=== PATIENT | female | born 1980 | race Two or more races ===

== ENCOUNTER 2022-09-28 00:32 | Emergency (ER) | payer OTHER ==
[~2022-09-28] VITALS: Ht 157.5 cm; Wt 167.0 kg
[2022-09-28 01:37] LABS: Basophils # (auto) 0.1 10 ^3/uL (0-0.2); Eosinophils # (auto) 0.1 10 ^3/uL (0-0.8); Eosinophils % (auto) 1.1 % (0.0-7.0); Hematocrit 45.4 % (36.0-46.0); Hemoglobin 14.8 g/dL (12.2-16.2); Lymphocytes # (auto) 3.8 10 ^3/uL (0.4-5.4); Lymphocytes % (auto) 34.9 % (10.0-50.0); Mean Corpuscular Hemoglobin 28.5 pg (28.0-32.0); Mean Corpuscular Hgb Conc. 32.6 g/dL (32.0-36.0); Mean Corpuscular Volume 87.4 fL (80.0-100.0); Monocytes # (auto) 0.5 10 ^3/uL (0-1.3); Monocytes % (auto) 4.7 % (0.0-12.0); Neutrophils # (auto) 6.4 10 ^3/uL (1.6-8.6); Neutrophils % (auto) 58.3 % (37.0-80.0); Nucleated Red Blood Cells % 0.1 %; Red Blood Cells 5.19 10^6/uL (4.0-5.20); Red Cell Distribution Width 17.6 % (11.8-14.3); White Blood Cell 10.9 10^3/uL (4.4-10.8)
[2022-09-28 01:51] LABS: INR 1.19 (0.9-1.15)
[2022-09-28 02:30] LABS: Albumin 3.2 g/dL (3.4-5.0); BUN/Creatinine Ratio 14.8; Bilirubin, Total 0.4 mg/dL (0.2-1.0); Calcium 8.7 mg/dL (8.5-10.1); Potassium 3.8 mmol/L (3.5-5.1); Total Protein 8.1 g/dL (6.4-8.2)
[2022-09-28 02:31] LABS: Magnesium 2.1 mg/dL (1.6-2.6)
[2022-09-28 03:06] LABS: Urine Bacteria MANY /hpf (None Seen); Urine Blood 1+ /uL (Negative); Urine Mucus FEW (None Seen); Urine Specific Gravity 1.021 (1.001-1.035); Urine WBC 50 /hpf (0 - 5)
[2022-09-28] MEDS ORDERED: cefTRIAXone 1GM/50ML D5W 50 ML IV ONE (09:45)
[2022-09-28] MEDS ORDERED: AZITHROMYCIN 500MG/ 250ML 250 ML IV ONE (09:45)
[2022-09-28] MEDS ORDERED: GLIM1TAB PO (11:41)
[2022-09-28] MEDS ORDERED: CEFD300C2 PO (11:41)
[2022-09-28] MEDS ORDERED: METF-371 PO (11:41)
[2022-09-28 14:20] VITALS: BP 132/95
== END 2022-09-28 11:41 | disposition home or self-care (01) ==
LOC: ER 00:43
DX: J18.9 Pneumonia, unspecified organism (principal); R07.89 Other chest pain; N39.0 Urinary tract infection, site not specified; E11.9 Type 2 diabetes mellitus without complications; I10 Essential (primary) hypertension; R74.8 Abnormal levels of other serum enzymes; R42 Dizziness and giddiness; E66.01 Morbid (severe) obesity due to excess calories; Z68.44 Body mass index [BMI] 60.0-69.9, adult; Z20.822 Contact with and (suspected) exposure to COVID-19
CPT/HCPCS: 36415; 70450; 71045; 80053; 81001; 83036; 83605; 83735; 83880; 84443; 84484; 85025; 85379; 85610; 85730; 87040; 87426; 87804; 93005; 96365; 96367; 99285; J0456; J0696

== ENCOUNTER 2022-11-24 12:25 | Emergency (ER) | payer OTHER ==
[~2022-11-24] VITALS: Ht 157.5 cm; Wt 159.5 kg
[2022-11-24 12:25] VITALS: BP 152/101
[~2022-11-24 12:25] MED LIST: CEFD300C2 PO; GLIM1TAB PO; METF-371 PO
[2022-11-24] MEDS ORDERED: SUMAtriptan SUCCINATE 6 MG/0.5 ML VL SC ONE (13:30)
[2022-11-24] MEDS ORDERED: ONDANSETRON ODT 4 MG TAB PO ONE (13:30)
[2022-11-24] MEDS ORDERED: SUMA50TA2 PO (14:04)
[2022-11-24] MEDS ORDERED: ONDA-144 PO (14:47)
== END 2022-11-24 15:33 | disposition home or self-care (01) ==
LOC: ER 12:25
DX: G43.909 Migraine, unspecified, not intractable, without status migrainosus (principal); Z79.899 Other long term (current) drug therapy; Z98.890 Other specified postprocedural states
CPT/HCPCS: 70450; 96372; 99284; J3030; Q0162

== ENCOUNTER 2023-09-15 21:41 | Inpatient (IN) | payer OTHER ==
[~2023-09-15] VITALS: Ht 160 cm; Wt 155.4 kg
[~2023-09-15 21:41] MED LIST changes: +ONDA-144 PO; +RIVAROXABAN 20 MG TAB PO SCH; +SUMA50TA2 PO
[2023-09-15 23:10] LABS: Basophils # (auto) 0.1 10 ^3/uL (0-0.2); Basophils % (auto) 0.3 % (0.0-2.0); Eosinophils # (auto) 0 10 ^3/uL (0-0.8); Hematocrit 41.8 % (36.0-46.0); Lymphocytes # (auto) 1.3 10 ^3/uL (0.4-5.4); Lymphocytes % (auto) 7.4 % (10.0-50.0); Mean Corpuscular Hemoglobin 30.2 pg (28.0-32.0); Mean Corpuscular Hgb Conc. 33.5 g/dL (32.0-36.0); Mean Corpuscular Volume 90.2 fL (80.0-100.0); Monocytes # (auto) 1.5 10 ^3/uL (0-1.3); Monocytes % (auto) 8.6 % (0.0-12.0); Neutrophils # (auto) 14.7 10 ^3/uL (1.6-8.6); Neutrophils % (auto) 83.7 % (37.0-80.0); Nucleated Red Blood Cells % 0.1 %; Red Blood Cells 4.64 10^6/uL (4.0-5.20); Red Cell Distribution Width 14.2 % (11.8-14.3); White Blood Cell 17.6 10^3/uL (4.4-10.8)
[2023-09-15] MEDS ORDERED: ONDANSETRON ODT 4 MG TAB PO ONE (23:15)
[2023-09-15] MEDS ORDERED: KETOROLAC TROMETH 60MG/2ML VIAL IM ONE (23:15)
[2023-09-15 23:26] LABS: Alanine Aminotransferase 33 U/L (7-40); Alkaline Phosphatase 61 U/L (46-116); Calcium 9.3 mg/dL (8.7-10.4); Carbon Dioxide 21 mmol/L (20-30); Chloride 99 mmol/L (98-107); Glucose 154 mg/dL (74-106)
[2023-09-15 23:26] LABS: Urine Amorphous Crystal FEW /hpf (None Seen); Urine Bacteria FEW /hpf (None Seen); Urine Blood 3+ /uL (Negative); Urine Clarity CLOUDY (Clear); Urine Color Yellow (Yellow); Urine Hyaline Cast FEW /lpf (0 - 2); Urine Mucus FEW (None Seen); Urine Protein, UAD 2+ (Negative); Urine Specific Gravity 1.032 (1.001-1.035); Urine WBC 22 /hpf (0 - 5); Urine WBC Clumps PRESENT /hpf (None Seen)
[2023-09-15 23:27] LABS: Albumin 4.5 g/dL (3.2-4.8); Anion Gap 11 (5-15); Aspartate Aminotransferase 18 U/L (13-40); BUN/Creatinine Ratio 8.9 (10.0-20.0); Blood Urea Nitrogen 11 mg/dL (9-23); Lipase 42 U/L (12-53); Potassium 3.7 mmol/L (3.5-5.1); Sodium 131 mmol/L (136-145); Total Protein 8.6 g/dL (5.7-8.2)
[2023-09-15] MEDS ORDERED: cefTRIAXone 1GM/50ML D5W 50 ML IV ONE (23:45)
[2023-09-15] MEDS ORDERED: TAMSULOSIN HYDROCHLORIDE 0.4 MG CAP PO ONE (23:45)
[2023-09-15] MEDS ORDERED: SODIUM CHLORIDE 0.9% 1,000 ML IV ONE (23:45)
[2023-09-16] MEDS ORDERED: DEXTROSE (50%) 50ML SYRG IV PRN
[2023-09-16] MEDS ORDERED: KETOROLAC TROMETH 30 MG/ML 1ML VIAL IV ONE (01:45)
[2023-09-16] MEDS: ONDANSETRON HCL 4 MG/2 ML VIAL IV PRN ×2 (01:49→12:33)
[2023-09-16 06:14] LABS: Calcium 9.1 mg/dL (8.7-10.4); Chloride 99 mmol/L (98-107); Potassium 3.6 mmol/L (3.5-5.1); Sodium 132 mmol/L (136-145)
[2023-09-16 06:15] LABS: Anion Gap 10 (5-15); Carbon Dioxide 23 mmol/L (20-30)
[2023-09-16 06:18] LABS: Basophils # (auto) 0 10 ^3/uL (0-0.2); Basophils % (auto) 0.3 % (0.0-2.0); Eosinophils # (auto) 0 10 ^3/uL (0-0.8); Hematocrit 40.9 % (36.0-46.0); Hemoglobin 13.4 g/dL (12.2-16.2); Lymphocytes # (auto) 1.8 10 ^3/uL (0.4-5.4); Lymphocytes % (auto) 11.9 % (10.0-50.0); Mean Corpuscular Hemoglobin 29.7 pg (28.0-32.0); Mean Corpuscular Hgb Conc. 32.8 g/dL (32.0-36.0); Mean Corpuscular Volume 90.7 fL (80.0-100.0); Monocytes # (auto) 0.7 10 ^3/uL (0-1.3); Monocytes % (auto) 4.9 % (0.0-12.0); Neutrophils # (auto) 12.5 10 ^3/uL (1.6-8.6); Neutrophils % (auto) 82.9 % (37.0-80.0); Red Blood Cells 4.51 10^6/uL (4.0-5.20); Red Cell Distribution Width 14.4 % (11.8-14.3); White Blood Cell 15.1 10^3/uL (4.4-10.8)
[2023-09-16 06:20] LABS: BUN/Creatinine Ratio 9.3 (10.0-20.0); Blood Urea Nitrogen 14 mg/dL (9-23); Glucose 138 mg/dL (74-106)
[2023-09-16] MEDS: HYDROcodone-ACET 5/325MG TAB PO PRN ×2 (06:32→18:09)
[2023-09-16] MEDS: InsuLIN REG 1unit/0.01ml Soln (100units/ml) SC SCH ×4 (07:35→22:28)
[2023-09-16] MEDS: ACCU-CHEK COMFORT CURVE STRIP VI SCH ×4 (07:36→22:21)
[2023-09-16] MEDS: ACETAMINOPHEN 325 MG TAB PO PRN (07:39)
[2023-09-16 07:42] VITALS: PULSE 118; RESP 18; O2SAT 96
[2023-09-16] MEDS: cefTRIAXone 1GM/50ML D5W 50 ML IV SCH (09:41)
[2023-09-16] MEDS ORDERED: PATIENTS OWN MEDICATION (XARELTO 20 MG) PO SCH (10:00)
[2023-09-16] MEDS: KETOROLAC TROMETH 30 MG/ML 1ML VIAL IV PRN ×2 (11:45→22:30)
[2023-09-16] MEDS: LOSARTAN POTASSIUM 50 MG TAB PO SCH (11:55)
[2023-09-16] MEDS ORDERED: RIVAROXABAN 20 MG TAB PO SCH (12:00)
[2023-09-16] MEDS: MORPHINE SULFATE INJ 2 MG/ml SYRG IV PRN (12:24)
[2023-09-16] MEDS ORDERED: TAMSULOSIN HYDROCHLORIDE 0.4 MG CAP PO ONE (13:30)
[2023-09-16] MEDS ORDERED: MANNITOL FTV 25% 12.5 GM/50 ML 50 ML IV ONE (15:15)
[2023-09-16] MEDS ORDERED: SODIUM CHLORIDE 0.9% 4,650 ML IV ONE ×2 (15:15→16:15)
[2023-09-16] MEDS: TAMSULOSIN HYDROCHLORIDE 0.4 MG CAP PO SCH ×2 (18:00→22:20)
[2023-09-16 20:00] VITALS: PULSE 103; RESP 15; O2SAT 92
[2023-09-16 21:42] VITALS: PULSE 103; RESP 16; O2SAT 95
[2023-09-16] MEDS ORDERED: RIV20T PO (21:46)
[2023-09-16] MEDS ORDERED: SEMA7TAB2 PO (21:46)
[2023-09-16] MEDS ORDERED: LOSA50TA46 PO (21:46)
[2023-09-16] MEDS ORDERED: ATOR40TA52 PO (21:46)
[2023-09-16] MEDS: ATORVASTATIN 20 MG TAB PO SCH (22:19)
[2023-09-16 23:21] VITALS: BP 92/52; PULSE 103; RESP 16; TEMP 97.6; O2SAT 95
[2023-09-17] VITALS (8 sets, daily range): BP systolic 98–134; BP diastolic 61–81; PULSE 87–102; RESP 16–23; TEMP 97.2–98.7; O2SAT 93–95
[2023-09-17] MEDS: ACETAMINOPHEN 325 MG TAB PO PRN (03:56)
[2023-09-17] MEDS ORDERED: SODIUM CHLORIDE 0.9% 500 ML IV ONE (04:15)
[2023-09-17] MEDS: HYDROcodone-ACET 5/325MG TAB PO PRN (04:42)
[2023-09-17] MEDS: InsuLIN REG 1unit/0.01ml Soln (100units/ml) SC SCH ×4 (07:00→22:00)
[2023-09-17] MEDS: ACCU-CHEK COMFORT CURVE STRIP VI SCH ×4 (07:29→22:00)
[2023-09-17] MEDS: cefTRIAXone 1GM/50ML D5W 50 ML IV SCH (08:01)
[2023-09-17] MEDS: MORPHINE SULFATE INJ 2 MG/ml SYRG IV PRN ×2 (09:45→15:11)
[2023-09-17] MEDS: LOSARTAN POTASSIUM 50 MG TAB PO SCH (09:45)
[2023-09-17] MEDS: ONDANSETRON HCL 4 MG/2 ML VIAL IV PRN (20:27)
[2023-09-17] MEDS: TAMSULOSIN HYDROCHLORIDE 0.4 MG CAP PO SCH (20:27)
[2023-09-17] MEDS: KETOROLAC TROMETH 30 MG/ML 1ML VIAL IV PRN (20:27)
[2023-09-17] MEDS: ATORVASTATIN 20 MG TAB PO SCH (20:28)
[2023-09-18] VITALS (8 sets, daily range): BP systolic 124–147; BP diastolic 74–97; PULSE 74–90; RESP 16–22; TEMP 97.5–98.4; O2SAT 93–100
[2023-09-18] MEDS: ONDANSETRON HCL 4 MG/2 ML VIAL IV PRN ×4 (00:47→21:15)
[2023-09-18] MEDS: MORPHINE SULFATE INJ 2 MG/ml SYRG IV PRN (00:50)
[2023-09-18] MEDS: KETOROLAC TROMETH 30 MG/ML 1ML VIAL IV PRN ×3 (06:17→21:15)
[2023-09-18] MEDS: ACCU-CHEK COMFORT CURVE STRIP VI SCH ×4 (06:18→22:00)
[2023-09-18] MEDS: InsuLIN REG 1unit/0.01ml Soln (100units/ml) SC SCH ×4 (06:28→22:00)
[2023-09-18] MEDS: cefTRIAXone 1GM/50ML D5W 50 ML IV SCH (09:24)
[2023-09-18] MEDS: LOSARTAN POTASSIUM 50 MG TAB PO SCH (09:25)
[2023-09-18] MEDS: HYDROcodone-ACET 5/325MG TAB PO PRN ×3 (09:36→22:49)
[2023-09-18] MEDS: SUMAtriptan SUCCINATE 25 MG TAB PO PRN ×2 (15:15→22:37)
[2023-09-18] MEDS: TAMSULOSIN HYDROCHLORIDE 0.4 MG CAP PO SCH (21:15)
[2023-09-18] MEDS: MELATONIN 5 MG TAB PO SCH (22:14)
[2023-09-18] MEDS: ATORVASTATIN 20 MG TAB PO SCH (22:14)
[2023-09-19] MEDS: HYDROcodone-ACET 5/325MG TAB PO PRN ×3 (01:39→21:39)
[2023-09-19 05:00] VITALS: BP 127/85; PULSE 87; RESP 18; TEMP 98.1; O2SAT 96
[2023-09-19] MEDS: InsuLIN REG 1unit/0.01ml Soln (100units/ml) SC SCH ×4 (06:21→21:43)
[2023-09-19] MEDS: ACCU-CHEK COMFORT CURVE STRIP VI SCH ×4 (06:21→21:40)
[2023-09-19 08:15] VITALS: BP 122/84; PULSE 91; RESP 16; TEMP 97.2
[2023-09-19] MEDS: cefTRIAXone 1GM/50ML D5W 50 ML IV SCH (08:32)
[2023-09-19] MEDS: ONDANSETRON HCL 4 MG/2 ML VIAL IV PRN (08:32)
[2023-09-19 09:00] VITALS: BP 122/84; PULSE 91; RESP 16; TEMP 97.2; O2SAT 96
[2023-09-19] MEDS: LOSARTAN POTASSIUM 50 MG TAB PO SCH (10:15)
[2023-09-19] MEDS: SUMAtriptan SUCCINATE 25 MG TAB PO PRN (13:12)
[2023-09-19] MEDS ORDERED: SUMAtriptan SUCCINATE 6 MG/0.5 ML VL SC PRN (14:30)
[2023-09-19 17:00] VITALS: BP 117/86; PULSE 78; RESP 16; TEMP 97.8; O2SAT 97
[2023-09-19 20:00] VITALS: PULSE 90
[2023-09-19] MEDS: TAMSULOSIN HYDROCHLORIDE 0.4 MG CAP PO SCH (20:01)
[2023-09-19] MEDS: IMITREX PO PRN (20:02)
[2023-09-19] MEDS: ATORVASTATIN 20 MG TAB PO SCH (21:39)
[2023-09-19] MEDS: DOCUSATE SOD 100 MG CAP PO PRN (21:39)
[2023-09-19] MEDS: MELATONIN 5 MG TAB PO SCH (21:39)
[2023-09-19 22:00] VITALS: BP 128/85; PULSE 77; RESP 20; TEMP 98.1; O2SAT 93
[2023-09-20] MEDS: HYDROcodone-ACET 5/325MG TAB PO PRN ×3 (01:41→20:05)
[2023-09-20 05:00] VITALS: BP 109/77; PULSE 80; RESP 22; TEMP 98.8; O2SAT 96
[2023-09-20] MEDS: ACCU-CHEK COMFORT CURVE STRIP VI SCH ×4 (06:16→21:29)
[2023-09-20] MEDS: InsuLIN REG 1unit/0.01ml Soln (100units/ml) SC SCH ×4 (06:16→21:32)
[2023-09-20 08:15] VITALS: BP 118/77; PULSE 87; RESP 16; TEMP 98.7
[2023-09-20] MEDS: LOSARTAN POTASSIUM 50 MG TAB PO SCH (08:57)
[2023-09-20] MEDS: cefTRIAXone 1GM/50ML D5W 50 ML IV SCH (08:57)
[2023-09-20 08:58] VITALS: BP 118/77; PULSE 87; RESP 16; TEMP 98.7; O2SAT 93
[2023-09-20] MEDS: IMITREX PO PRN (09:05)
[2023-09-20] MEDS: DOCUSATE SOD 100 MG CAP PO PRN ×2 (09:05→21:29)
[2023-09-20 14:47] VITALS: BP 129/74; PULSE 79; RESP 16; TEMP 97.9; O2SAT 96
[2023-09-20 17:17] VITALS: BP 116/73; PULSE 85; RESP 17; TEMP 97.9; O2SAT 97
[2023-09-20] MEDS: TAMSULOSIN HYDROCHLORIDE 0.4 MG CAP PO SCH (20:05)
[2023-09-20] MEDS: MELATONIN 5 MG TAB PO SCH (21:29)
[2023-09-20] MEDS: ATORVASTATIN 20 MG TAB PO SCH (21:29)
[2023-09-20] MEDS: KETOROLAC TROMETH 30 MG/ML 1ML VIAL IV PRN (21:40)
[2023-09-20 22:00] VITALS: BP 128/89; PULSE 83; RESP 18; TEMP 98.1; O2SAT 97
[2023-09-21 05:00] VITALS: BP 129/88; PULSE 80; RESP 22; TEMP 97.8; O2SAT 96
[2023-09-21] MEDS: InsuLIN REG 1unit/0.01ml Soln (100units/ml) SC SCH ×2 (06:09→11:30)
[2023-09-21] MEDS: ACCU-CHEK COMFORT CURVE STRIP VI SCH ×2 (06:09→12:02)
[2023-09-21 06:29] LABS: Basophils # (auto) 0 10 ^3/uL (0-0.2); Basophils % (auto) 0.5 % (0.0-2.0); Eosinophils # (auto) 0.2 10 ^3/uL (0-0.8); Eosinophils % (auto) 2.6 % (0.0-7.0); Hematocrit 36.1 % (36.0-46.0); Hemoglobin 11.9 g/dL (12.2-16.2); Lymphocytes % (auto) 25.4 % (10.0-50.0); Mean Corpuscular Hemoglobin 29.6 pg (28.0-32.0); Mean Corpuscular Volume 89.9 fL (80.0-100.0); Monocytes # (auto) 1.3 10 ^3/uL (0-1.3); Monocytes % (auto) 16.6 % (0.0-12.0); Neutrophils # (auto) 4.2 10 ^3/uL (1.6-8.6); Neutrophils % (auto) 54.9 % (37.0-80.0); Red Blood Cells 4.01 10^6/uL (4.0-5.20); Red Cell Distribution Width 13.8 % (11.8-14.3); White Blood Cell 7.7 10^3/uL (4.4-10.8)
[2023-09-21 06:45] LABS: Anion Gap 9 (5-15); Carbon Dioxide 23 mmol/L (20-30); Chloride 105 mmol/L (98-107); Potassium 3.8 mmol/L (3.5-5.1); Sodium 137 mmol/L (136-145)
[2023-09-21 06:46] LABS: Calcium 8.8 mg/dL (8.7-10.4)
[2023-09-21 06:51] LABS: BUN/Creatinine Ratio 10.5 (10.0-20.0); Blood Urea Nitrogen 12 mg/dL (9-23); Glucose 96 mg/dL (74-106)
[2023-09-21 06:59] LABS: INR 1.04 (0.9-1.15); Partial Thromboplastin Time 29.6 SEC (24.5-34.5); Prothrombin Time 10.9 sec (9.3-11.8)
[2023-09-21] MEDS ORDERED: ceFAZolin 2 GM/D5W100ml 100 ML IV ONE (07:12)
[2023-09-21] MEDS ORDERED: IOHEXOL 300 MG/ML 100ML BOTTLE IJ ONE (07:13)
[2023-09-21] MEDS: cefTRIAXone 1GM/50ML D5W 50 ML IV SCH (08:54)
[2023-09-21] MEDS: LOSARTAN POTASSIUM 50 MG TAB PO SCH (08:55)
[2023-09-21 10:12] VITALS: BP 138/90; PULSE 82; RESP 16; TEMP 98.2; O2SAT 100
[2023-09-21] MEDS ORDERED: TAMS-35 PO (11:19)
[2023-09-21] MEDS ORDERED: CIPR-173 PO (11:20)
[2023-09-21] MEDS ORDERED: TRAM50TA2 PO ×2 (11:20→11:25)
[2023-09-21] MEDS ORDERED: HYDR-4902 PO (11:27)
[2023-09-21] MEDS ORDERED: ACE650RS PO (11:29)
[2023-09-21 13:09] VITALS: BP 138/90; TEMP 36.8
[2023-09-21 14:23] VITALS: BP 139/90; PULSE 78; RESP 16; TEMP 98.7; O2SAT 97
== END 2023-09-21 18:00 | disposition home or self-care (01) | DRG 720 ==
LOC: ER 21:41 → OVERFLOW 23:56 → EAST 09-16 20:30
PROVIDERS: ADMIT Nurse Practitioner; ATTEND Family Medicine
DX: A41.9 Sepsis, unspecified organism (principal); N17.9 Acute kidney failure, unspecified; Z68.44 Body mass index [BMI] 60.0-69.9, adult; N13.6 Pyonephrosis; E11.9 Type 2 diabetes mellitus without complications; I10 Essential (primary) hypertension; E86.0 Dehydration; R79.89 Other specified abnormal findings of blood chemistry; E66.01 Morbid (severe) obesity due to excess calories; E78.5 Hyperlipidemia, unspecified; Z86.711 Personal history of pulmonary embolism
CPT/HCPCS: 36415; 71045; 74018; 74176; 76775; 80048; 80053; 81001; 82962; 83605; 83690; 84702; 85025; 85610; 85730; 86850; 86900; 86901; 87040; 87086; 93005; G0378; J0696; J1815; J1885; J2405

== ENCOUNTER 2023-12-02 19:01 | Emergency (ER) | payer SELFPAY ==
[~2023-12-02] VITALS: Ht 160 cm; Wt 154.0 kg
[~2023-12-02 19:01] MED LIST changes: +ACE650RS PO; +ATOR40TA52 PO; -CEFD300C2 PO; +CIPR-173 PO; -GLIM1TAB PO; +LOSA50TA46 PO; -ONDA-144 PO; +RIV20T PO; -RIVAROXABAN 20 MG TAB PO SCH; +SEMA7TAB2 PO; +TAMS-35 PO
[2023-12-02] MEDS ORDERED: ONDANSETRON ODT 4 MG TAB PO ONE (19:45)
[2023-12-02] MEDS ORDERED: DexAMETHasone SOD PHOS 10MG/1ML VIAL INJ IM ONE (20:00)
[2023-12-02 21:14] LABS: COVID19 ANTIGEN SOFIA FIA NEGATIVE (NEGATIVE); Rapid Influenza A Negative (Negative); Rapid Influenza B Negative (Negative)
[2023-12-02 21:34] VITALS: BP 126/87
[2023-12-02 22:35] LABS: Rapid Strep A Screen-Throat Negative
[2023-12-02 22:39] LABS: Urine Bacteria NONE SEEN /hpf (None Seen); Urine Blood 1+ /uL (Negative); Urine Clarity Clear (Clear); Urine Color Yellow (Yellow); Urine Mucus FEW (None Seen); Urine Protein, UAD TRACE (Negative); Urine Specific Gravity 1.023 (1.001-1.035); Urine WBC 2 /hpf (0 - 5)
[2023-12-02] MEDS ORDERED: ACET500T58 PO (23:00)
[2023-12-02] MEDS ORDERED: IBUP-1455 PO (23:00)
[2023-12-02 23:28] VITALS: PULSE 100; RESP 18; TEMP 98.2; O2SAT 98
== END 2023-12-02 23:28 | disposition home or self-care (01) ==
LOC: ER 19:01
DX: J02.8 Acute pharyngitis due to other specified organisms (principal); Z20.822 Contact with and (suspected) exposure to COVID-19; Z86.711 Personal history of pulmonary embolism; Z98.890 Other specified postprocedural states
CPT/HCPCS: 36415; 70360; 81001; 87070; 87426; 87804; 87880; 96372; 99284; J1100

== ENCOUNTER 2023-12-04 18:54 | Emergency (ER) | payer SELFPAY ==
[~2023-12-04] VITALS: Ht 160 cm; Wt 150.0 kg
[~2023-12-04 18:54] MED LIST changes: +ACET500T58 PO; +IBUP-1455 PO
[2023-12-04 19:10] VITALS: BP 140/78; PULSE 103; RESP 22; TEMP 98.2; O2SAT 96
[2023-12-04 20:56] LABS: Basophils # (auto) 0.1 10 ^3/uL (0-0.2); Basophils % (auto) 0.4 % (0.0-2.0); Eosinophils # (auto) 0.1 10 ^3/uL (0-0.8); Eosinophils % (auto) 0.3 % (0.0-7.0); Hematocrit 41.8 % (36.0-46.0); Hemoglobin 13.2 g/dL (12.2-16.2); Lymphocytes # (auto) 4.5 10 ^3/uL (0.4-5.4); Lymphocytes % (auto) 24.4 % (10.0-50.0); Mean Corpuscular Hemoglobin 28.2 pg (28.0-32.0); Mean Corpuscular Hgb Conc. 31.7 g/dL (32.0-36.0); Monocytes # (auto) 1.6 10 ^3/uL (0-1.3); Neutrophils # (auto) 12.1 10 ^3/uL (1.6-8.6); Neutrophils % (auto) 65.9 % (37.0-80.0); Red Cell Distribution Width 14.2 % (11.8-14.3); White Blood Cell 18.4 10^3/uL (4.4-10.8)
[2023-12-04 21:21] LABS: Alanine Aminotransferase 14 U/L (7-40); Albumin 4.3 g/dL (3.2-4.8); Alkaline Phosphatase 63 U/L (46-116); Anion Gap 10 (5-15); Aspartate Aminotransferase 16 U/L (13-40); BUN/Creatinine Ratio 15.6 (10.0-20.0); Bilirubin, Total 0.3 mg/dL (0.2-1.0); Blood Urea Nitrogen 17 mg/dL (9-23); Calcium 9.7 mg/dL (8.5-10.1); Carbon Dioxide 23 mmol/L (20-30); Chloride 105 mmol/L (98-107); Glucose 109 mg/dL (74-106); Potassium 3.9 mmol/L (3.5-5.1); Sodium 138 mmol/L (136-145); Total Protein 8.3 g/dL (5.7-8.2)
[2023-12-04 21:29] LABS: Rapid Strep A Screen-Throat Positive
[2023-12-04] MEDS ORDERED: PENICILLIN G BENZ 1,200,000 UNITS/2 ML SYRG IM ONE (21:45)
[2023-12-04] MEDS ORDERED: LIDOCAINE VISCOUS 2% 15ML UD MT ONE (21:45)
[2023-12-04] MEDS ORDERED: DexAMETHasone SOD PHOS 10MG/1ML VIAL INJ IM ONE (21:45)
[2023-12-04] MEDS ORDERED: PRED20TA2 PO (21:57)
[2023-12-04] MEDS ORDERED: IBUP-1455 PO (21:57)
[2023-12-04] MEDS ORDERED: LIDO2SOL18 MT (21:57)
[2023-12-04] MEDS ORDERED: CLIN300C70 PO (21:57)
[2023-12-04] MEDS ORDERED: HYDR-4902 PO (22:01)
== END 2023-12-04 22:26 | disposition home or self-care (01) ==
LOC: ER 18:54
DX: J03.90 Acute tonsillitis, unspecified (principal); R59.1 Generalized enlarged lymph nodes; E11.9 Type 2 diabetes mellitus without complications; Z86.711 Personal history of pulmonary embolism; Z98.890 Other specified postprocedural states; Z79.899 Other long term (current) drug therapy
CPT/HCPCS: 36415; 80053; 82962; 85025; 86308; 87880; 96372; 99284; J0561; J1100

== ENCOUNTER 2024-11-22 20:46 | Inpatient (IN) | payer OTHER, SELFPAY ==
[~2024-11-22] VITALS: Ht 160 cm; Wt 150.0 kg
[~2024-11-22 20:46] MED LIST changes: +CLIN1CAP70 PO; +HYDR-4902 PO; -IBUP-1455 PO; +LIDO2SOL18 MT; +LOSA-534 PO; -LOSA50TA46 PO; +PRED20TA2 PO
--- NOTE | 2024-11-22 20:54 | ECG ---
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
[2024-11-22] MEDS: LORazepam 2MG/ML-1ML VIAL IV ONE (21:00)
[2024-11-22] MEDS: SODIUM CHLORIDE 0.9% 1,000 ML IV ONE (21:00)
--- NOTE | 2024-11-22 21:17 | ED.PDOC ---
HPI Comments HPI: Poor Historian. 44-year-old female presents to emergency department for evaluation of chest discomfort/palpitations Patient states that she felt palpitations starting today that caused her to feel SOB and some chest discomfort. Patient mentions a history of anxiety and feeling like this in the past, but states that this time it is stronger and more intense than previous episodes. Patient is a former tobacco smoker. Patient has positive family history of heart disease. Patient started Wellbutrin x 1 week ago for Depression and Anxiety. Patient is currently taking Xarelto. PMHx: Diabetes, Hypertension, Blood Clotting Disorder, Anxiety , depression PSHx: Initial Vital Signs: Temp: 97.4F HR: 118 RR: 19 BP: 145/94 SpO2: 98% REVIEW OF SYSTEMS: CONSTITUTIONAL: Denies acute: fever, diaphoresis, chills, generalized weakness. HEAD: Denies acute: headache, photophobia Eyes: Denies acute: Double vision, vision loss, eye pain, eye discharge. EARS: Denies acute: tinnitus, hearing loss, ear discharge, ear pain, THROAT: Denies acute: sore throat, swelling, difficulty swallowing , pain with swallowing, change in voice. NECK: Denies acute: neck pain, neck swelling, stiff neck. HEART: Denies acute : LUNGS: Denies acute: wheezing, cough, hemoptysis ABDOMEN: Denies acute: abdominal pain, Nausea, Vomiting, diarrhea, melena , hematemesis, hematochezia SKIN: Denies acute: rash, redness, lesions, itchiness. EXTREMITIES: Denies acute: calf pain, numbness, tingling, weakness, denies pain in extremity. Denies acute: Low back pain. Neuro: Denies acute: focal neurological deficit, motor or sensory focal neurological deficit, tremors, seizure like activity, confusion, dizziness, change in mental status, loss of bowel or bladder function, cauda equina like symptoms. : Denies acute: dysuria, hematuria, flank pain, increase in urinary frequency. PSYCH: Denies acute: hallucination, suicidal ideation, homicidal ideation. FEMALE: Denies acute: abnormal vaginal bleeding, foul odor, unusual discharge. PHYSICAL EXAM: General: Mild acute distress, awake and alert. Head: normocephalic, atraumatic. Neck: supple, trachea is midline, no swelling. Throat: Normal phonation. Eyes:, no erythema, no purulent discharge, no proptosis, no icterus. Heart: regular tachycardic, no significant murmur appreciated. Lungs: no apparent respiratory distress, Able to speak in full sentences. No wheezing, no rhonchi, no crackles. No stridors Clear to auscultation bilaterally. Abdomen: non tender to palpation, non distended, soft, no guarding, no rebound, + bowel sounds. Morbidly obese Neuro: Awake, Alert, oriented to name, self, situation, follows commands GCS=15. Speech is normal. Skin: no petechia, no purpura, no cyanosis, non-pale, not jaundice. Lower extremities: --1/4 - Pitting edema no deformity, no focal swelling, no calf TTP. Makes eye contact. moves all four extremities. Face: no apparent facial droop. Ambulating in the ED independently. Chief Complaint: Chest Pain Time Seen by MD: 20:51 Primary Care Provider: MARQUEZ Reviewed Notes: Nurses Notes, Medications, Allergies Allergies: Coded Allergies: NO KNOWN ALLERGIES (Unverified , 09/28/22) Home Meds Active Scripts Hydrocodone-Acetaminophen (Hydrocodone Bitartrate/AC 5-325 mg) 1 Tab Tab, 1 TAB PO Q6HPRN PRN, #4 TAB As needed for pain Prov:VAMSI DURÁN Q COREMAKER PIPE 12/04/23 Lidocaine Hcl (Lidocaine Viscous) 2 % Catie, 5 ML MT Q6HPRN PRN, #100 ML As needed for sore throat Prov:VAMSI DURÁN Q COREMAKER PIPE 12/04/23 Prednisone (Prednisone) 20 Mg Tab, 1 TAB PO DAILY for 5 Days, #5 TAB Start tomorrow with food Prov:VAMSI DURÁN Q COREMAKER PIPE 12/04/23 Clindamycin Hcl (Clindamycin Hcl) 300 Mg Cap, 1 CAP PO QID for 10 Days, #40 CAP Prov:VAMSI DURÁN Q COREMAKER PIPE 12/04/23 Acetaminophen (Acetaminophen) 500 Mg Tab, 500 MG PO Q4HP PRN, #30 TAB Prov:HALEY SALDAÑA PAC 12/02/23 Acetaminophen (Tylenol) 650 Mg Rc, 650 MG PO TID PRN, #30 SUPP.RECT Prov:DANIELLA PADILLA MD 09/21/23 Ciprofloxacin Hcl (Cipro) 500 Mg Tab, 1 TAB PO BID, #20 TAB Prov:DANIELLA PADILLA MD 09/21/23 Tamsulosin Hcl (Flomax) 0.4 Mg Cap, 1 CAP PO DAILY, #30 CAP 11 Refills Prov:DANIELLA PADILLA MD 09/21/23 Sumatriptan Succinate (Imitrex) 50 Mg Tab, 100 MG PO BID, #20 TAB Prov:HALEY SALDAÑA PAC 11/24/22 Metformin Hydrochloride (Metformin Hcl) 850 Mg Tab, 1 TAB PO BID for 30 Days, #60 TAB 5 Refills Prov:OLLIE DE LA GARZA MD 09/28/22 Reported Medications Atorvastatin Calcium (ATORVASTATIN CALCIUM) 40 Mg Tab, 1 TAB PO DAILY 09/16/23 Losartan Potassium (Losartan Potassium) 50 Mg Tab, 1 TAB PO DAILY 09/16/23 Semaglutide (Rybelsus) 7 Mg Tab, 1 TAB PO DAILY 09/16/23 Rivaroxaban (Xarelto Tablet) 20 Mg Tb, 1 TAB PO DAILY 09/16/23 Information Source: Patient Mode of Arrival: Ambulatory Past Medical History PAST MEDICAL HISTORY: DM, PE Surgical History: 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 Was a procedure done?: No X-Ray, Labs, Meds, VS Vital Signs Date Time Temp Pulse Resp B/P (MAP) Pulse Ox O2 Delivery O2 Flow Rate FiO2 11/22/24 20:52 119 11/22/24 20:50 98.6 118 19 145/94 (111) 98 Lab Test 11/22/24 22:01 11/22/24 21:00 Range/Units Lactic Acid Level 1.7 0.4-2.0 mmol/L Troponin I High Sensitivity < 3 L < 3 L </=34 ng/L White Blood Count 9.8 4.4-10.8 10^3/uL Red Blood Count 4.46 4.0-5.20 10^6/uL Hemoglobin 11.4 L 12.2-16.2 g/dL Hematocrit 35.6 L 36.0-46.0 % Mean Corpuscular Volume 79.9 L 80.0-100.0 fL Mean Corpuscular Hemoglobin 25.5 L 28.0-32.0 pg Mean Corpuscular Hemoglobin Concent 32.0 32.0-36.0 g/dL Red Cell Distribution Width 16.3 H 11.8-14.3 % Platelet Count 347 140-450 10^3/uL Mean Platelet Volume 8.0 6.9-10.8 fL Neutrophils (%) (Auto) 60.3 37.0-80.0 % Lymphocytes (%) (Auto) 29.8 10.0-50.0 % Monocytes (%) (Auto) 8.3 0.0-12.0 % Eosinophils (%) (Auto) 0.9 0.0-7.0 % Basophils (%) (Auto) 0.7 0.0-2.0 % Neutrophils # (Auto) 5.9 1.6-8.6 10 ^3/uL Lymphocytes # (Auto) 2.9 0.4-5.4 10 ^3/uL Monocytes # (Auto) 0.8 0-1.3 10 ^3/uL Eosinophils # (Auto) 0.1 0-0.8 10 ^3/uL Basophils # (Auto) 0.1 0-0.2 10 ^3/uL Nucleated Red Blood Cells 0.0 % Prothrombin Time 10.2 9.3-11.8 sec Prothrombin Time INR 0.96 0.9-1.15 Activated Partial Thromboplast Time 26.7 24.5-34.5 SEC D-Dimer, Quantitative 0.23 0.0-0.49 mg/L FEU Sodium Level 137 136-145 mmol/L Potassium Level 4.0 3.5-5.1 mmol/L Chloride Level 107 98-107 mmol/L Carbon Dioxide Level 22 20-31 mmol/L Anion Gap 8 5-15 Blood Urea Nitrogen 19 9-23 mg/dL Creatinine 0.93 0.550-1.02 mg/dL Glomerular Filtration Rate Calc 77 >90 mL/min BUN/Creatinine Ratio 20.4 H 10.0-20.0 Serum Glucose 172 H 74-106 mg/dL Calcium Level 9.5 8.7-10.4 mg/dL Magnesium Level 1.7 1.6-2.6 mg/dL Total Bilirubin 0.2 0.2-1.0 mg/dL Aspartate Amino Transferase (AST) 21 13-40 U/L Alanine Aminotransferase (ALT) 31 7-40 U/L Alkaline Phosphatase 63 46-116 U/L B-Type Natriuretic Peptide 37.85 0-100 pg/mL Total Protein 7.1 5.7-8.2 g/dL Albumin 3.9 3.2-4.8 g/dL Thyroid Stimulating Hormone (TSH) 1.55 0.55-4.78 uIU/mL [place] [address] Ph: [phone] DIAGNOSTIC IMAGING Diagnostic Imaging Report : [id number] Signed PATIENT: ARTHUR SMYTH ACCT: [id number] UNIT: [id number] : 1980 LOC: ER ROOM / BED: / AGE / SEX: 44 / F ADM STATUS: REG ER SERVICE 49 ORDERING PHYSICIAN: PEDRO LUIS CAMARILLO MD PROCEDURE(s): CXRP - CHEST PORTABLE REASON: CP ORDER NUMBER(s): [id number], ACCESSION NUMBER(s): [id number] EXAMINATION: AP portable chest radiograph CLINICAL HISTORY: CP COMPARISON: XY CHEST XRAY 1 VIEW on DOS: 09/21/23 FINDINGS: Mild central interstitial prominence. No lobar consolidation identified. No definite pleural effusion or pneumothorax. The cardiomediastinal silhouette appears within normal limits given technique. IMPRESSION: Mild central interstitial prominence is relatively nonspecific but can be seen with edema, reactive airway changes as well as atypical / viral infection. Plea se correlate clinically. ATED BY: JAMAAL CHEN MD DICTATED DATE/TIME: 11/22/242123 SIGNED BY: JAMAAL CHEN MD SIGNED DATE/TIME: 11/22/242123 CC: Reevaluation 1ST: Unchanged Patient Education/Counseling: Diagnosis, Treatment Family Education/Counseling: Diagnosis, Treatment Departure 1 Departure Time of Disposition: 21:42 Impression: Primary Impression: Chest pain Additional Impression: Tachycardia Disposition: 09 ADMITTED INPATIENT Admit to: Tele Condition: Guarded Discharged With: Self Critical Care Note Critical Care Time?: No I personally scribed for BARRY COOPER DO ([email or web address]) on 11/22/24 at 21:17. Electronically submitted by Dax Alvarado ([email or web address]). I personally scribed for BARRY COOPER DO ([email or web address]) on 11/22/24 at 21:38. Electronically submitted by Dax Alvarado ([email or web address]). I personally scribed for BARRY COOPER DO ([email or web address]) on 11/23/24 at 01:51. Electronically submitted by Ronni Jimenez ([email or web address]). BARRY COOPER DO Nov 22, 2024 21:17
--- NOTE | 2024-11-22 21:27 | DVH ---
EXAMINATION: AP portable chest radiograph CLINICAL HISTORY: CP COMPARISON: XY CHEST XRAY 1 VIEW on DOS: 09/21/23 FINDINGS: Mild central interstitial prominence. No lobar consolidation identified. No definite pleural effusion or pneumothorax. The cardiomediastinal silhouette appears within normal limits given technique. IMPRESSION: Mild central interstitial prominence is relatively nonspecific but can be seen with edema, reactive a irway changes as well as atypical / viral infection. Please correlate clinically.
[2024-11-22 21:35] LABS: Basophils # (auto) 0.1 10 ^3/uL (0-0.2); Eosinophils # (auto) 0.1 10 ^3/uL (0-0.8); Hemoglobin 11.4 g/dL (12.2-16.2); Monocytes # (auto) 0.8 10 ^3/uL (0-1.3); Neutrophils # (auto) 5.9 10 ^3/uL (1.6-8.6); Platelet Count (auto) 347 10^3/uL (140-450); Red Cell Distribution Width 16.3 % (11.8-14.3)
[2024-11-22 21:38] LABS: Basophils % (auto) 0.7 % (0.0-2.0); Eosinophils % (auto) 0.9 % (0.0-7.0); Hematocrit 35.6 % (36.0-46.0); Lymphocytes # (auto) 2.9 10 ^3/uL (0.4-5.4); Lymphocytes % (auto) 29.8 % (10.0-50.0); Mean Corpuscular Hemoglobin 25.5 pg (28.0-32.0); Mean Corpuscular Volume 79.9 fL (80.0-100.0); Monocytes % (auto) 8.3 % (0.0-12.0); Neutrophils % (auto) 60.3 % (37.0-80.0); Red Blood Cells 4.46 10^6/uL (4.0-5.20); White Blood Cell 9.8 10^3/uL (4.4-10.8)
[2024-11-22 21:39] LABS: Alanine Aminotransferase 31 U/L (7-40); Albumin 3.9 g/dL (3.2-4.8); Alkaline Phosphatase 63 U/L (46-116); Anion Gap 8 (5-15); Aspartate Aminotransferase 21 U/L (13-40); BUN/Creatinine Ratio 20.4 (10.0-20.0); Blood Urea Nitrogen 19 mg/dL (9-23); Calcium 9.5 mg/dL (8.7-10.4); Carbon Dioxide 22 mmol/L (20-31); Chloride 107 mmol/L (98-107); Magnesium 1.7 mg/dL (1.6-2.6); Sodium 137 mmol/L (136-145); Total Protein 7.1 g/dL (5.7-8.2)
[2024-11-22 21:42] LABS: Bilirubin, Total 0.2 mg/dL (0.2-1.0); Glucose 172 mg/dL (74-106)
[2024-11-22 21:44] LABS: INR 0.96 (0.9-1.15); Partial Thromboplastin Time 26.7 SEC (24.5-34.5); Prothrombin Time 10.2 sec (9.3-11.8)
[2024-11-22] MEDS: ASPirin 325 MG TAB PO ONE (21:45)
[2024-11-22] MEDS: NITROGLYCERIN 0.4 MG SL TAB SL ONE (21:45)
[2024-11-23 01:35] LABS: Amphetamine Screen, Urine Neg (NEGATIVE); Barbiturate Scree,Urine Neg (NEGATIVE); Benzodiazephine Screen, Urine Neg (NEGATIVE); Urine Bacteria FEW /hpf (None Seen); Urine Blood 2+ /uL (Negative); Urine Clarity Clear (Clear); Urine Color Light-Yellow (Yellow); Urine Protein, UAD Negative (Negative); Urine Squamous Epithelial Cell FEW /hpf (<5); Urine Urobilinogen Normal (Negative); Urine WBC 3 /hpf (0 - 5); Urine pH 5.5 (5.0-9.0)
[2024-11-23 01:38] LABS: Cannabinoid Screen, Urine Neg (NEGATIVE); Cocaine Screen, Urine Neg (NEGATIVE); Opiate Scree,Urine Neg (NEGATIVE); Phencyclidine Screen, Urine Neg (NEGATIVE)
[2024-11-23] MEDS ORDERED: DEXTROSE (50%) 50ML SYRG IV PRN (01:45)
--- NOTE | 2024-11-23 02:36 | DVHHPRES ---
History of Present Illness Resident Creating Document: FELIX SALDIVARDONATO RESIDENT History of Present Illness Patient is a 44-year-old obese woman with a past medical history as described below came to the ED with a chief complaint of sudden onset shortness of breath in the afternoon. Patient was started that she was working on a computer suddenly around 2:00 a.m. in the afternoon she started to have shortness of breath like she could not catch her breath and had associated palpitations. Patient also reported chest pain 7/10 in intensity, substernal, pressure-like with intermittent sharp pain but no radiation, no association with taking deep breaths or moving. Patient reported to have flu-like symptoms cough with expectoration about 2 weeks ago and is currently having only dry cough. Patient reports that she suffers from anxiety and has had previous episodes of shortness of Breath which improved when she takes deep breaths but this time she has had continuous shortness of breath and palpitations. Patient also reports lightheadedness and mild headache. Patient denies recent immobilization, history of cancer, recent surgery, weight loss, fever. Past medical history: DVT in 2000 and PE about 10 years ago currently on Xarelto 20 mg q.p.m., hypertension, type 2 diabetes mellitus, anxiety, dyslipidemia Past surgical history: Social history: Patient was a follow up over but denies current smoking, alcohol, drug use Home medications: Losartan q.d. ( dose unknown ), metformin 850 mg b.i.d., Lipitor q.h.s. (dose unknown), Xarelto 20 mg q.p.m., bupropion Review of Systems Review of Systems Patient reports feeling substernal pressure-like chest pain 7/10 on intensity but does not look to be in acute distress. Reports she is feeling palpitations since the afternoon and dry cough Denies shortness of breath, nausea, vomiting, dysuria, Allergies: Coded Allergies: NO KNOWN ALLERGIES (Unverified , 09/28/22) Medications Current Medications Medications Dose Ordered Sig/Jd Route Start Time Stop Time Status Last Admin Dose Admin Atorvastatin Calcium 40 mg HS PO 11/23/24 22:00 Exam Vital Signs Vital Signs Date Time Temp Pulse Resp B/P (MAP) Pulse Ox O2 Delivery O2 Flow Rate FiO2 11/22/24 20:52 119 11/22/24 20:50 98.6 19 145/94 (111) 98 Exam Physical Examination Constitutional: Patient was alert and oriented to time, place and person, is morbidly obese with a BMI 58, does not appear to be in any acute distress Gen - no pallor, no icterus, no cyanosis, no clubbing, no LAD, trace pitting edema in the lower extremities bilaterally more on the left. Skin - Patients skin is warm and dry. HEENT - normocephalic, atraumatic, moist mucous membranes. Neck - full ROM, no LAD, no JVD Pulmonary - B/L vesicular breath sounds. no crackles , no wheezing cardiovascular - normal S1,S2 heard. no murmurs heard. GI - soft abdomen without tenderness to deep palpation . no hepatospleenomegaly. Bowel sounds normoactive Neurological - Bilateral upper extremity strength 5/5, bilateral lower extremity strength 5/5, no facial droop, normal speech, no tremor, no sensory deficiets. Labs/Xrays Labs Test 11/23/24 00:18 11/22/24 23:00 11/22/24 22:01 11/22/24 21:00 Range/Units Troponin I High Sensitivity 3 L </=34 ng/L Urine Color Light-yellow Yellow Urine Clarity Clear Clear Urine pH 5.5 5.0-9.0 Urine Specific [place] 1.020 1.001-1.035 Urine Protein Negative Negative Urine Ketones Trace Negative Urine Blood 2+ H Negative /uL Urine Nitrite Negative Negative Urine Bilirubin Negative Negative Urine Urobilinogen Normal Negative mg/dL Urine Leukocyte Esterase Negative Negative /uL Urine RBC 15 0 - 4 /hpf Urine WBC 3 0 - 5 /hpf Urine Squamous Epithelial Cells Few <5 /hpf Urine Bacteria Few H None Seen /hpf Urine Glucose Normal Normal mg/dL Urine Opiates Screen Neg NEGATIVE Urine Fentanyl Screen Neg NEGATIVE Urine Barbiturates Screen Neg NEGATIVE Urine Phencyclidine Screen Neg NEGATIVE Urine Amphetamines Screen Neg NEGATIVE Urine Benzodiazepines Screen Neg NEGATIVE Urine Cocaine Screen Neg NEGATIVE Urine Cannabinoids Screen Neg NEGATIVE Lactic Acid Level 1.7 0.4-2.0 mmol/L White Blood Count 9.8 4.4-10.8 10^3/uL Red Blood Count 4.46 4.0-5.20 10^6/uL Hemoglobin 11.4 L 12.2-16.2 g/dL Hematocrit 35.6 L 36.0-46.0 % Mean Corpuscular Volume 79.9 L 80.0-100.0 fL Mean Corpuscular Hemoglobin 25.5 L 28.0-32.0 pg Mean Corpuscular Hemoglobin Concent 32.0 32.0-36.0 g/dL Red Cell Distribution Width 16.3 H 11.8-14.3 % Platelet Count 347 140-450 10^3/uL Mean Platelet Volume 8.0 6.9-10.8 fL Neutrophils (%) (Auto) 60.3 37.0-80.0 % Lymphocytes (%) (Auto) 29.8 10.0-50.0 % Monocytes (%) (Auto) 8.3 0.0-12.0 % Eosinophils (%) (Auto) 0.9 0.0-7.0 % Basophils (%) (Auto) 0.7 0.0-2.0 % Neutrophils # (Auto) 5.9 1.6-8.6 10 ^3/uL Lymphocytes # (Auto) 2.9 0.4-5.4 10 ^3/uL Monocytes # (Auto) 0.8 0-1.3 10 ^3/uL Eosinophils # (Auto) 0.1 0-0.8 10 ^3/uL Basophils # (Auto) 0.1 0-0.2 10 ^3/uL Nucleated Red Blood Cells 0.0 % Prothrombin Time 10.2 9.3-11.8 sec Prothrombin Time INR 0.96 0.9-1.15 Activated Partial Thromboplast Time 26.7 24.5-34.5 SEC D-Dimer, Quantitative 0.23 0.0-0.49 mg/L FEU Sodium Level 137 136-145 mmol/L Potassium Level 4.0 3.5-5.1 mmol/L Chloride Level 107 98-107 mmol/L Carbon Dioxide Level 22 20-31 mmol/L Anion Gap 8 5-15 Blood Urea Nitrogen 19 9-23 mg/dL Creatinine 0.93 0.550-1.02 mg/dL Glomerular Filtration Rate Calc 77 >90 mL/min BUN/Creatinine Ratio 20.4 H 10.0-20.0 Serum Glucose 172 H 74-106 mg/dL Calcium Level 9.5 8.7-10.4 mg/dL Magnesium Level 1.7 1.6-2.6 mg/dL Total Bilirubin 0.2 0.2-1.0 mg/dL Aspartate Amino Transferase (AST) 21 13-40 U/L Alanine Aminotransferase (ALT) 31 7-40 U/L Alkaline Phosphatase 63 46-116 U/L B-Type Natriuretic Peptide 37.85 0-100 pg/mL Total Protein 7.1 5.7-8.2 g/dL Albumin 3.9 3.2-4.8 g/dL Thyroid Stimulating Hormone (TSH) 1.55 0.55-4.78 uIU/mL Assessment/Plan Assessment/Plan Acute chest pain, r/o ACS ? Unstable angina - 12 lead ECG showed sinus tachycardia, no ST segment changes or T-wave abnormalities - troponin levels trended under normal limits - multiple comorbidities hypertension, morbid obesity, type 2 diabetes mellitus, hypercoagulable state ( with the h/o DVT and PE) - given aspirin 325 mg and atorvastatin 40 mg - on aspirin 81 mg and atorvastatin 40 mg q.d. - telemetry - cardiology consulted PE less likely - previous h/o DVT and PE, currently on Xarelto 20mg qpm - d-dimer 0.23 - Wells score 3 ( <PE unlikely) - as the patient is currently on xarelto and d-dimer is negative, PE is less likely, therefore Lower extremity venous doppler and CT angio not done Suspected pneumonitis ?post viral ?atypical bacterial - chest x-ray shows mild central interstitial prominence with suspicion of airway changes well as atypical/viral infection - given 1 dose of ceftriaxone 1 g and azithromycin 500 mg IV - duo nebs p.r.n. for SOB Hypertensive heart disease ?acute on chronic heart failure with systolic vs diastolic dysfunction - trace bilateral pitting edema more on the left lower extremity - given 1 dose of Lasix 20 mg IV - echo pending - started on home medication losartan Generalized anxiety disorder - started on home med bupropion Type 2 diabetes mellitus with hyperglycemia - HbA1c pending - at home patient takes metformin 850 mg b.i.d. - started on mild insulin sliding scale Goals of care discussed with the patient for over 27 minutes. Full code Plan discussed with Dr. Narayanan Plan discussed with: Patient My Orders Orders - SHO SALDIVAR RESIDENT Procedure Category Date Status Time Admit ADMIT 11/22/24 Transmitted 22:50 Stat Ekg For Chest JAY 11/22/24 In Process Pain 22:50 Notify Md Of Changes JAY 11/22/24 In Process From Base 22:50 Senior Hr Business Partner For JAY 11/22/24 In Process 24 Hours 22:50 Emergency Dysrhythmia JAY 11/22/24 In Process Protocol 22:50 Covid19 Antigen [facility] LAB 11/22/24 Logged Rapid Influenza A&B LAB 11/22/24 Logged 22:50 Complete Blood Count LAB 11/23/24 Logged 04:00 Basic Metabolic Panel LAB 11/23/24 Logged 04:00 Code Status CODE 11/22/24 Transmitted 23:09 Consistent DIET 11/23/24 Transmitted Carb(Ccho)Diabetes Breakfast Atorvastatin (Lipitor) PHA 11/23/24 In Process 22:00 Date of Service: Nov 23, 2024 Billing Provider: POOL NARAYANAN MD Common Visit Codes: [id number] INP/OBS CARE (HIGH) SHO SALDIVAR RESIDENT Nov 23, 2024 02:36 POOL NARAYANAN MD Nov 23, 2024 17:54
[2024-11-23] MEDS: FUROSEMIDE 20 MG/2 ML VIAL IV ONE (02:45)
[2024-11-23 05:00] VITALS: BP 125/75; PULSE 89; RESP 18; TEMP 98.6; O2SAT 97
[2024-11-23 05:30] VITALS: PULSE 85; RESP 18; O2SAT 97
[2024-11-23] MEDS: cefTRIAXone 1GM/50ML D5W 50 ML IV ONE (05:49)
[2024-11-23] MEDS: ATORVASTATIN 20 MG TAB PO ONE (05:58)
[2024-11-23] MEDS: buPROPion HCL 100 MG TAB PO SCH (05:58)
[2024-11-23] MEDS: ACCU-CHEK COMFORT CURVE STRIP VI SCH (05:59)
[2024-11-23] MEDS: InsuLIN REG 1unit/0.01ml Soln (100units/ml) SC SCH (06:07)
[2024-11-23] MEDS: AZITHROMYCIN 500MG/ 250ML 250 ML IV ONE (06:29)
[2024-11-23 07:59] VITALS: PULSE 91
[2024-11-23 08:19] LABS: Chloride 107 mmol/L (98-107); Potassium 3.9 mmol/L (3.5-5.1); Sodium 137 mmol/L (136-145)
[2024-11-23 08:20] LABS: Anion Gap 8 (5-15); Carbon Dioxide 22 mmol/L (20-31)
[2024-11-23 08:21] LABS: Calcium 9.3 mg/dL (8.7-10.4)
[2024-11-23] MEDS ORDERED: BUPR150T8 PO (08:21)
[2024-11-23 08:25] LABS: Blood Urea Nitrogen 16 mg/dL (9-23)
[2024-11-23 08:26] LABS: BUN/Creatinine Ratio 20.8 (10.0-20.0); Triglycerides 69 mg/dL (< 150)
[2024-11-23 08:27] LABS: LDL Cholesterol 68 mg/dL (< 100)
[2024-11-23 08:28] LABS: Cholesterol 119 mg/dL (< 200); HDL Cholesterol 48 mg/dL (40-59)
[2024-11-23 08:29] LABS: Basophils # (auto) 0 10 ^3/uL (0-0.2); Eosinophils # (auto) 0.1 10 ^3/uL (0-0.8); Hemoglobin 10.9 g/dL (12.2-16.2); Lymphocytes # (auto) 1.6 10 ^3/uL (0.4-5.4); Neutrophils # (auto) 5.3 10 ^3/uL (1.6-8.6)
[2024-11-23 08:31] LABS: Basophils % (auto) 0.3 % (0.0-2.0); Eosinophils % (auto) 1.2 % (0.0-7.0); Hematocrit 33.7 % (36.0-46.0); Lymphocytes % (auto) 20.9 % (10.0-50.0); Mean Corpuscular Hemoglobin 25.8 pg (28.0-32.0); Mean Corpuscular Hgb Conc. 32.5 g/dL (32.0-36.0); Mean Corpuscular Volume 79.6 fL (80.0-100.0); Monocytes # (auto) 0.7 10 ^3/uL (0-1.3); Monocytes % (auto) 8.9 % (0.0-12.0); Neutrophils % (auto) 68.7 % (37.0-80.0); Platelet Count (auto) 318 10^3/uL (140-450); Red Blood Cells 4.24 10^6/uL (4.0-5.20); Red Cell Distribution Width 16.2 % (11.8-14.3); White Blood Cell 7.7 10^3/uL (4.4-10.8)
[2024-11-23 08:32] LABS: Glucose 145 mg/dL (74-106)
[2024-11-23 09:21] VITALS: BP 113/71; PULSE 87; RESP 16; TEMP 98.3; O2SAT 95
[2024-11-23] MEDS: LOSARTAN POTASSIUM 25 MG TAB PO SCH (09:31)
[2024-11-23] MEDS: ASPirin 81 mg TAB PO SCH (09:31)
--- NOTE | 2024-11-23 10:09 | ECG ---
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
--- NOTE | 2024-11-23 12:08 | DVHINCON2 ---
Date Seen: Nov 23, 2024 Referring Physician MD [place] resident Reason for Consultation Chest Pain, ?unstable angina History of Present Illness This is a 44-year-old female patient who presents to emergency room with chief complaint of chest pain, shortness of breath, and palpitations that began at 2:00 p.m. yesterday. 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 She describes the chest pain as worse on inhalation, pressure-like in nature, intermittent, and left inframammary without radiation. She also reports recent sickness with cough approximately three weeks ago. Initial twelve lead electrocardiogram reveals normal sinus rhythm without any significant ST segment changes. Initial serial troponin levels have been negative. Significant past medical history includes hypertension, hyperlipidemia, type 2 diabetes mellitus, DVT in 2000, PE approximately 15 years ago (on Xarelto), anxiety, and morbid obesity. Past Medical History Past medical history reviewed. No other significant than mentioned above. Past Surgical History Family History: Cardiovascular disease G8 FATHER Chronic obstructive pulmonary disease G8 MOTHER Family History Family history reviewed. Social History Denies the use of tobacco, alcohol or illicit drugs. Allergies: Coded Allergies: NO KNOWN ALLERGIES (Unverified , 09/28/22) Home Meds Active Scripts Hydrocodone-Acetaminophen (Hydrocodone Bitartrate/AC 5-325 mg) 1 Tab Tab, 1 TAB PO Q6HPRN PRN, #4 TAB As needed for pain Prov:VAMSI DURÁN Q LINE CREWMAN 12/04/23 Lidocaine Hcl (Lidocaine Viscous) 2 % Catie, 5 ML MT Q6HPRN PRN, #100 ML As needed for sore throat Prov:JEFFREY DURÁNA Q LINE CREWMAN 12/04/23 Prednisone (Prednisone) 20 Mg Tab, 1 TAB PO DAILY for 5 Days, #5 TAB Start tomorrow with food Prov:JEFFREY DURÁNA Q LINE CREWMAN 12/04/23 Clindamycin Hcl (Clindamycin Hcl) 300 Mg Cap, 1 CAP PO QID for 10 Days, #40 CAP Prov:LUIS ARMANDOTWINABDELRAHMANA Q LINE CREWMAN 12/04/23 Acetaminophen (Acetaminophen) 500 Mg Tab, 500 MG PO Q4HP PRN, #30 TAB Prov:HALEY SALDAÑA PAC 12/02/23 Acetaminophen (Tylenol) 650 Mg Rc, 650 MG PO TID PRN, #30 SUPP.RECT Prov:DANIELLA PADILLA MD 09/21/23 Ciprofloxacin Hcl (Cipro) 500 Mg Tab, 1 TAB PO BID, #20 TAB Prov:DANIELLA PADILLA MD 09/21/23 Tamsulosin Hcl (Flomax) 0.4 Mg Cap, 1 CAP PO DAILY, #30 CAP 11 Refills Prov:DANIELLA PADILLA MD 09/21/23 Sumatriptan Succinate (Imitrex) 50 Mg Tab, 100 MG PO BID, #20 TAB Prov:HALEY SALDAÑA PAC 11/24/22 Metformin Hydrochloride (Metformin Hcl) 850 Mg Tab, 1 TAB PO BID for 30 Days, #60 TAB 5 Refills Prov:OLLIE DE LA GARZA MD 09/28/22 Reported Medications Bupropion Hcl (Wellbutrin Sr) 150 Mg Tab, 150 MG PO, TAB 11/23/24 Atorvastatin Calcium (ATORVASTATIN CALCIUM) 40 Mg Tab, 1 TAB PO DAILY 09/16/23 Losartan Potassium (Losartan Potassium) 50 Mg Tab, 1 TAB PO DAILY 09/16/23 Semaglutide (Rybelsus) 7 Mg Tab, 1 TAB PO DAILY 09/16/23 Rivaroxaban (Xarelto Tablet) 20 Mg Tb, 1 TAB PO DAILY 09/16/23 Home Meds Home medications reviewed. Current Medications Current Medications Medications (Trade) Dose Ordered Sig/Jd Route PRN Reason Start Time Stop Time Status Last Admin Atorvastatin Calcium (Lipitor) 40 mg HS PO 11/23/24 22:00 Diagnostic Test (Pha) (Accu-Chek Comfort Curve T) 1 strip IQ4HR 11/23/24 04:00 11/23/24 07:48 Insulin Human Regular (InsuLIN R) IQ4HR SC 11/23/24 04:00 11/23/24 07:57 Dextrose 50 ml UD PRN IV Blood Sugar LESS THAN 60 11/23/24 01:45 Losartan Potassium (Cozaar Tablet) 25 mg DAILY PO 11/23/24 10:00 11/23/24 09:31 Bupropion HCl (Wellbutrin Tablet) 100 mg BID@07,19 PO 11/23/24 07:00 11/23/24 05:58 Rivaroxaban (Xarelto Tablet) 20 mg QPM PO 11/23/24 18:00 Aspirin 81 mg DAILY PO 11/23/24 10:00 11/23/24 09:31 Review of Systems Constitutional: No symptom reported Ears, Nose, & Throat: No symptom reported Eyes: No symptom reported Neurological: No symptoms reported Pulmonary/Respiratory: Shortness of breath Cardiovascular: Chest pain, palpitations Gastrointestinal: No symptom reported Genitourinary: No symptom reported Musculoskeletal: No symptom reported Skin: No symptom reported Psychiatric: No symptom reported Endocrine: No symptom reported Hematologic/Lymphatic: No symptom reported Vital Signs Vital Signs Date Time Temp Pulse Resp B/P (MAP) Pulse Ox O2 Delivery O2 Flow Rate FiO2 11/23/24 09:31 113/71 11/23/24 09:21 98.3 87 16 95 98.3 11/23/24 07:59 Room Air* 0 21 Physical Exam General Appearance: Cooperative. Morbidly obese Pulmonary/Respiratory: Clear, bilateral breaths sounds. Cardiovascular/Chest: Regular rate and rhythm. Peripheral Pulses: 2+ Radial (R). 2+ Radial (L). 2+ Pedal (R). 2+ Pedal (L) Abdominal Exam: Normal bowel sounds. Ankle Exam: Trace nonpitting bilateral ankle edema Lower extremities: Negative lower extremity edema Neuro/Mental Status: A/OX4, coherent. Thoughts/Psych: Normal thought pattern. Appropriate mood and affect. Good judgment and insight. Appearance: No acute distress. Skin Exam: Normal inspection. Normal color. Warm and dry. Labs/Diagnostic Data Labs Test 11/23/24 07:28 11/23/24 00:18 11/22/24 23:00 11/22/24 22:01 Range/Units White Blood Count 7.7 4.4-10.8 10^3/uL Red Blood Count 4.24 4.0-5.20 10^6/uL Hemoglobin 10.9 L 12.2-16.2 g/dL Hematocrit 33.7 L 36.0-46.0 % Mean Corpuscular Volume 79.6 L 80.0-100.0 fL Mean Corpuscular Hemoglobin 25.8 L 28.0-32.0 pg Mean Corpuscular Hemoglobin Concent 32.5 32.0-36.0 g/dL Red Cell Distribution Width 16.2 H 11.8-14.3 % Platelet Count 318 140-450 10^3/uL Mean Platelet Volume 8.1 6.9-10.8 fL Neutrophils (%) (Auto) 68.7 37.0-80.0 % Lymphocytes (%) (Auto) 20.9 10.0-50.0 % Monocytes (%) (Auto) 8.9 0.0-12.0 % Eosinophils (%) (Auto) 1.2 0.0-7.0 % Basophils (%) (Auto) 0.3 0.0-2.0 % Neutrophils # (Auto) 5.3 1.6-8.6 10 ^3/uL Lymphocytes # (Auto) 1.6 0.4-5.4 10 ^3/uL Monocytes # (Auto) 0.7 0-1.3 10 ^3/uL Eosinophils # (Auto) 0.1 0-0.8 10 ^3/uL Basophils # (Auto) 0 0-0.2 10 ^3/uL Nucleated Red Blood Cells 0.0 % Sodium Level 137 136-145 mmol/L Potassium Level 3.9 3.5-5.1 mmol/L Chloride Level 107 98-107 mmol/L Carbon Dioxide Level 22 20-31 mmol/L Anion Gap 8 5-15 Blood Urea Nitrogen 16 9-23 mg/dL Creatinine 0.77 0.550-1.02 mg/dL Glomerular Filtration Rate Calc 96 >90 mL/min BUN/Creatinine Ratio 20.8 H 10.0-20.0 Serum Glucose 145 H 74-106 mg/dL Hemoglobin A1c 6.8 H <5.7 % A1C Calcium Level 9.3 8.7-10.4 mg/dL Triglycerides Level 69 < 150 mg/dL Cholesterol Level 119 < 200 mg/dL LDL Cholesterol 68 < 100 mg/dL HDL Cholesterol 48 40-59 mg/dL Troponin I High Sensitivity 3 L </=34 ng/L Urine Color Light-yellow Yellow Urine Clarity Clear Clear Urine pH 5.5 5.0-9.0 Urine Specific [place] 1.020 1.001-1.035 Urine Protein Negative Negative Urine Ketones Trace Negative Urine Blood 2+ H Negative /uL Urine Nitrite Negative Negative Urine Bilirubin Negative Negative Urine Urobilinogen Normal Negative mg/dL Urine Leukocyte Esterase Negative Negative /uL Urine RBC 15 0 - 4 /hpf Urine WBC 3 0 - 5 /hpf Urine Squamous Epithelial Cells Few <5 /hpf Urine Bacteria Few H None Seen /hpf Urine Glucose Normal Normal mg/dL Urine Opiates Screen Neg NEGATIVE Urine Fentanyl Screen Neg NEGATIVE Urine Barbiturates Screen Neg NEGATIVE Urine Phencyclidine Screen Neg NEGATIVE Urine Amphetamines Screen Neg NEGATIVE Urine Benzodiazepines Screen Neg NEGATIVE Urine Cocaine Screen Neg NEGATIVE Urine Cannabinoids Screen Neg NEGATIVE Lactic Acid Level 1.7 0.4-2.0 mmol/L Test 11/22/24 21:00 Range/Units Prothrombin Time 10.2 9.3-11.8 sec Prothrombin Time INR 0.96 0.9-1.15 Activated Partial Thromboplast Time 26.7 24.5-34.5 SEC D-Dimer, Quantitative 0.23 0.0-0.49 mg/L FEU Magnesium Level 1.7 1.6-2.6 mg/dL Total Bilirubin 0.2 0.2-1.0 mg/dL Aspartate Amino Transferase (AST) 21 13-40 U/L Alanine Aminotransferase (ALT) 31 7-40 U/L Alkaline Phosphatase 63 46-116 U/L B-Type Natriuretic Peptide 37.85 0-100 pg/mL Total Protein 7.1 5.7-8.2 g/dL Albumin 3.9 3.2-4.8 g/dL Thyroid Stimulating Hormone (TSH) 1.55 0.55-4.78 uIU/mL Assessment Chest pain, likely pleuritic Hypertension Hyperlipidemia Type 2 diabetes mellitus Anxiety Morbid obesity Plan/Recommendation We will continue with the following plan/recommendations (Dr. Rubin): Patient seen and examined with in the ER holding area. Given patient's clinical presentation, unremarkable twelve lead electrocardiogram, and negative troponin level, doubt ACS. The patient presentation likely in keeping with pleuritic chest pain. There is no further inpatient cardiac workup indicated at this time. The patient may follow up with Cardiology in the outpatient setting in 1-2 weeks post discharge for any further workup if deemed necessary. Thank you for allowing us to care for this patient. Please call with any questions or concerns. Critical care time spent: 40 minutes This medical document was created using an electronic medical record system with voice recognition software and computerized dictation system. Although this document has been carefully reviewed, there might still be some phonetic and typographical errors. Occasional wrong-word or ``sound-alike substitutions may have occurred due to the inherent limitations of voice recognition software. These areas are purely typographical due to imperfections of the software programs and do not reflect any compromise in the patient's medical care. Please read the chart carefully and recognize, using context, where these substitutions have occurred. Plan discussed with: Patient NYHA Physical activity limitations: NA Date of Service: Nov 23, 2024 Billing Provider: MARYAN RUBIN MD Cardiology Common Codes: 34256-LESOUTQ INP/OBS CARE (High) Cardiology Consultation Codes: 87537-VQZOVGVSB CONSULT <45MIN JORGE HANNA Nov 23, 2024 12:07
[2024-11-23 12:41] LABS: Rapid Influenza A Negative (Negative); Rapid Influenza B Negative (Negative)
[2024-11-23 12:42] LABS: COVID19 ANTIGEN SOFIA FIA NEGATIVE (NEGATIVE)
[2024-11-23] MEDS ORDERED: PANT40TA57 PO (14:58)
[2024-11-23] MEDS ORDERED: CYCL-611 PO (14:58)
[2024-11-23] MEDS ORDERED: IBUP1TAB5 PO (14:58)
[2024-11-23 15:42] VITALS: BP 113/71; TEMP 36.8
[2024-11-23] MEDS: methylPREDNISolone SOD SUCC 40 MG/ML VL IV ONE (15:59)
[2024-11-23] MEDS: KETOROLAC TROMETH 30 MG/ML 1ML VIAL IV ONE (16:01)
[2024-11-23] MEDS ORDERED: AZIT500T66 PO (16:14)
[2024-11-23] MEDS ORDERED: RIVAROXABAN 20 MG TAB PO SCH (18:00)
--- NOTE | 2024-11-23 18:42 | DVHDSRES ---
Discharge Summary Date of Admission Resident Creating Document: SHO SALDIVAR RESIDENT Nov 22, 2024 at 22:50 Date of Discharge: Nov 23, 2024 Wounds: Labs/Diagnostic Data: Laboratory Results Test 11/23/24 11:55 11/23/24 11:38 11/23/24 07:28 11/23/24 00:18 POC Glucose 196 mg/dl (70-106) Influenza Type A Antigen Negative (Negative) Influenza Type B Antigen Negative (Negative) SARS-CoV-2 Antigen (Rapid) Negative (NEGATIVE) White Blood Count 7.7 10^3/uL (4.4-10.8) Red Blood Count 4.24 10^6/uL (4.0-5.20) Hemoglobin 10.9 g/dL (12.2-16.2) Hematocrit 33.7 % (36.0-46.0) Mean Corpuscular Volume 79.6 fL (80.0-100.0) Mean Corpuscular Hemoglobin 25.8 pg (28.0-32.0) Mean Corpuscular Hemoglobin Concent 32.5 g/dL (32.0-36.0) Red Cell Distribution Width 16.2 % (11.8-14.3) Platelet Count 318 10^3/uL (140-450) Mean Platelet Volume 8.1 fL (6.9-10.8) Neutrophils (%) (Auto) 68.7 % (37.0-80.0) Lymphocytes (%) (Auto) 20.9 % (10.0-50.0) Monocytes (%) (Auto) 8.9 % (0.0-12.0) Eosinophils (%) (Auto) 1.2 % (0.0-7.0) Basophils (%) (Auto) 0.3 % (0.0-2.0) Neutrophils # (Auto) 5.3 10 ^3/uL (1.6-8.6) Lymphocytes # (Auto) 1.6 10 ^3/uL (0.4-5.4) Monocytes # (Auto) 0.7 10 ^3/uL (0-1.3) Eosinophils # (Auto) 0.1 10 ^3/uL (0-0.8) Basophils # (Auto) 0 10 ^3/uL (0-0.2) Nucleated Red Blood Cells 0.0 % Sodium Level 137 mmol/L (136-145) Potassium Level 3.9 mmol/L (3.5-5.1) Chloride Level 107 mmol/L (98-107) Carbon Dioxide Level 22 mmol/L (20-31) Anion Gap 8 (5-15) Blood Urea Nitrogen 16 mg/dL (9-23) Creatinine 0.77 mg/dL (0.550-1.02) Glomerular Filtration Rate Calc 96 mL/min (>90) BUN/Creatinine Ratio 20.8 (10.0-20.0) Serum Glucose 145 mg/dL (74-106) Hemoglobin A1c 6.8 % A1C (<5.7) Calcium Level 9.3 mg/dL (8.7-10.4) Triglycerides Level 69 mg/dL (< 150) Cholesterol Level 119 mg/dL (< 200) LDL Cholesterol 68 mg/dL (< 100) HDL Cholesterol 48 mg/dL (40-59) Troponin I High Sensitivity 3 ng/L (</=34) Test 11/22/24 23:00 11/22/24 22:01 11/22/24 21:00 Urine Color Light-yellow (Yellow) Urine Clarity Clear (Clear) Urine pH 5.5 (5.0-9.0) Urine Specific [place] 1.020 (1.001-1.035) Urine Protein Negative (Negative) Urine Ketones Trace (Negative) Urine Blood 2+ /uL (Negative) Urine Nitrite Negative (Negative) Urine Bilirubin Negative (Negative) Urine Urobilinogen Normal mg/dL (Negative) Urine Leukocyte Esterase Negative /uL (Negative) Urine RBC 15 /hpf (0 - 4) Urine WBC 3 /hpf (0 - 5) Urine Squamous Epithelial Cells Few /hpf (<5) Urine Bacteria Few /hpf (None Seen) Urine Glucose Normal mg/dL (Normal) Urine Opiates Screen Neg (NEGATIVE) Urine Fentanyl Screen Neg (NEGATIVE) Urine Barbiturates Screen Neg (NEGATIVE) Urine Phencyclidine Screen Neg (NEGATIVE) Urine Amphetamines Screen Neg (NEGATIVE) Urine Benzodiazepines Screen Neg (NEGATIVE) Urine Cocaine Screen Neg (NEGATIVE) Urine Cannabinoids Screen Neg (NEGATIVE) Lactic Acid Level 1.7 mmol/L (0.4-2.0) Prothrombin Time 10.2 sec (9.3-11.8) Prothrombin Time INR 0.96 (0.9-1.15) Activated Partial Thromboplast Time 26.7 SEC (24.5-34.5) D-Dimer, Quantitative 0.23 mg/L FEU (0.0-0.49) Magnesium Level 1.7 mg/dL (1.6-2.6) Total Bilirubin 0.2 mg/dL (0.2-1.0) Aspartate Amino Transferase (AST) 21 U/L (13-40) Alanine Aminotransferase (ALT) 31 U/L (7-40) Alkaline Phosphatase 63 U/L (46-116) B-Type Natriuretic Peptide 37.85 pg/mL (0-100) Total Protein 7.1 g/dL (5.7-8.2) Albumin 3.9 g/dL (3.2-4.8) Thyroid Stimulating Hormone (TSH) 1.55 uIU/mL (0.55-4.78) Other Laboratory Tests 11/23/24 07:28 Brief Hx & Hospital Course: The patient is a 44-year-old obese woman with a history of DVT in 2000, PE about 10 years ago, hypertension, type 2 diabetes mellitus, anxiety, and dyslipidemia, who presented to the ED with sudden onset shortness of breath in the afternoon. 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 when she suddenly felt like she couldn't catch her breath and experienced palpitations. She reported chest pain rated 7/10 in intensity, substernal, pressure-like with intermittent sharp pain but no radiation, and no association with deep breaths or movement. The patient mentioned having flu-like symptoms with a cough and expectoration about two weeks ago and is currently experiencing only a dry cough. She suffers from anxiety and has had previous episodes of shortness of breath, which improved with deep breaths, but this time she has had continuous shortness of breath and palpitations. Additionally, she reports lightheadedness and a mild headache but denies recent immobilization, history of cancer, recent surgery, weight loss, or fever. Her past surgical history includes a , and she is a former smoker who denies current smoking, alcohol, or drug use. Her home medications include Losartan, metformin, Lipitor, Xarelto, and bupropion. Hospital course: EKGs showed sinus tachycardia with no acute ST or T-wave changes. Serial trop I was negative. And the patient was admitted for the possible ACS. And the patient was admitted at the line of pneumonia and to rule out ACS. The patient was given empiric antibiotics of azithromycin, ceftriaxone, aspirin, atorvastatin, and methylprednisolone. During hospital course patient's home medicine including bupropion, losartan was continued. Cardiology was consulted, recommended that chest pain is likely due to pleuritic chest pain and the patient may need outpatient follow up. On 11/23, the patient was feeling better since admission. Patient was clinically and hemodynamically stable. Discharge plan discussed with the patient the patient was discharged. Additional plan: Follow up with the PCP within 1 week of the discharge. Follow up with the Cardiology on outpatient basis. Follow up with the discharge Clinic within 1 week after discharge Protonix 40 mg daily for 30 days Ibuprofen 600 mg t.i.d. for the pain p.r.n. Cyclobenzaprine 10 mg for 7 days Operations or Procedures [place] [id number] Ph: [phone] DIAGNOSTIC IMAGING Diagnostic Imaging Report : [id number] Signed PATIENT: ARTHUR SMYTH EACCT: [id number] UNIT: [id number] : 1980 LOC: ER ROOM / BED: / AGE / SEX: 44 / F ADM STATUS: REG ER SERVICE 49 ORDERING PHYSICIAN: PEDRO LUIS CAMARILLO MD PROCEDURE(s): CXRP - CHEST PORTABLE REASON: CP ORDER NUMBER(s): [id number], ACCESSION NUMBER(s): [id number] EXAMINATION: AP portable chest radiograph CLINICAL HISTORY: COMPARISON: XY CHEST XRAY 1 VIEW on DOS: 09/21/23 FINDINGS: Mild central interstitial prominence. No lobar consolidation identified. No definite pleural effusion or pneumothorax. The cardiomediastinal silhouette appears within normal limits given technique. IMPRESSION: Mild central interstitial prominence is relatively nonspecific but can be seen with edema, reactive airway changes as well as atypical / viral infection. Please correlate clinically. ATED BY: HIMANSHU CHEN MD DICTATED DATE/TIME: 11/22/242123 SIGNED BY: HIMANSHU CHEN MD SIGNED DATE/TIME: 11/22/242123 CC: Condition at Discharge: Good Final Diagnosis/Problems List Pneumonia, likely due to Gram-positive Gram-negative bacteria/viral Chest pain likely due to Costochondritis Ruled out ACS/unstable angina Ruled out pulmonary emboli Hypertensive heart disease Ruled out acute on chronic heart failure Generalized anxiety disorder diabetes mellitus type 2 with hyperglycemia Acute pneumonitis Morbid obesity , BMI 58.6 Hyperlipidemia Discharge Disposition: Home Discharge Instruct/Medications Diet: Cardiac 2g Na,low cholest Activity: No Restrictions, As Tolerated Follow Up/Referral: Follow up with the PCP within 1 week of the discharge. Follow up with the DC clinic within 1 week of the discharge Medications: Tablet cyclobenzaprine 10 mg daily for 7 days Tablet ibuprofen 600 mg t.i.d. for 10 days Tablet Protonix 40 mg daily for 30 days Discharge Statement: "Patient was advised to return to the ER or call 911 if any headaches, dizziness, shortness of breath, chest pain, abdominal pain, bleeding, fevers, or worsening of medical condition. Patient was counseled about treatment plan, medications, possible side effects, patientverbalized understanding. All questions were answered to the best of my ability. This discharge took greater then 30 minutes in planning, reviewing documentation, counseling the patient, and discussing with other team members." ASSESSMENT ASSESSMENT Assessment Acute pneumonitis Costochondritis Date of Service: Nov 23, 2024 Billing Provider: NANCI CARDENAS MD Common Visit Codes: 01888-[id number] DISCH DAY >30min LEV GUAN RESDIENT Nov 23, 2024 18:42 NANCI CARDENAS MD Nov 24, 2024 09:51
[2024-11-23] MEDS ORDERED: ATORVASTATIN 20 MG TAB PO SCH (22:00)
== END 2024-11-23 16:32 | disposition home or self-care (01) | DRG 205 ==
LOC: ER 20:46 → TELE 22:50
PROVIDERS: ADMIT Student in an Organized Health Care Education/Training Program; ATTEND Student in an Organized Health Care Education/Training Program
DX: M94.0 Chondrocostal junction syndrome [Tietze] (principal); J12.9 Viral pneumonia, unspecified; J15.69 Pneumonia due to other Gram-negative bacteria; J15.9 Unspecified bacterial pneumonia; Z68.43 Body mass index [BMI] 50.0-59.9, adult; E66.01 Morbid (severe) obesity due to excess calories; Z20.822 Contact with and (suspected) exposure to COVID-19; E78.5 Hyperlipidemia, unspecified; I11.9 Hypertensive heart disease without heart failure; F41.1 Generalized anxiety disorder; E11.65 Type 2 diabetes mellitus with hyperglycemia; J98.4 Other disorders of lung; Z86.718 Personal history of other venous thrombosis and embolism; Z82.5 Family history of asthma and other chronic lower respiratory diseases; Z82.49 Family history of ischemic heart disease and other diseases of the circulatory system
CPT/HCPCS: 36415; 71045; 80048; 80053; 80061; 80307; 81001; 82962; 83036; 83605; 83735; 83880; 84443; 84484; 85025; 85379; 85610; 85730; 87426; 87804; 93005; G0378; J1815; J1885

== ENCOUNTER 2025-06-13 17:12 | Emergency (ER) | payer SELFPAY ==
[~2025-06-13] VITALS: Ht 160 cm; Wt 166.1 kg
[~2025-06-13 17:12] MED LIST changes: -ACET500T58 PO; +AZIT500T66 PO; +BUPR150T8 PO; -CIPR-173 PO; -CLIN1CAP70 PO; +CYCL-611 PO; +IBUP1TAB5 PO; +PANT40TA57 PO; -PRED20TA2 PO; -RIV20T PO
--- NOTE | 2025-06-13 17:48 | ED.PDOC ---
History of Present Illness HPI Comments 44 y/o F, with PMhx of DM and migraine headaches presents to the ED for CC of headache. Patient states, she suffers from chronic migraine headaches however, endorses this one to be different d/t associated left eye pain and pressure onset, 1100 today (06/03/25). Patient denies photophobia, nausea, vomiting, changes in gait, or weakness. No other symptoms or modifying factors present at this time. Chief Complaint: Headache Time Seen by MD: 17:40 Primary Care Provider: [facility] Reviewed Notes: Nurses Notes, Medications, Allergies Allergies: Coded Allergies: NO KNOWN ALLERGIES (Unverified , 09/28/22) Home Meds Active Scripts Azithromycin (Azithromycin) 500 Mg Tab, 1 TAB PO DAILY, #5 TAB Prov:NANCI CARDENAS MD 11/23/24 Cyclobenzaprine HCl (Cyclobenzaprine Hydrochlo) 10 Mg Tab, 10 MG PO HS for 7 Days, #7 TAB 0 Refills Prov:NANCI CARDENAS MD 11/23/24 Pantoprazole Sodium Sesquihydr (Pantoprazole Sodium Dr) 40 Mg Tab, 40 MG PO DAILY for 30 Days, #30 TAB 0 Refills Prov:NANCI CARDENAS MD 11/23/24 Ibuprofen Micronized (Ibuprofen) 600 Mg Tab, 600 MG PO TIDPRN PRN for 10 Days, #30 TAB 0 Refills Prov:NANCI CARDENAS MD 11/23/24 Hydrocodone-Acetaminophen (Hydrocodone Bitartrate/AC 5-325 mg) 1 Tab Tab, 1 TAB PO Q6HPRN PRN, #4 TAB As needed for pain Prov:VAMSI DURÁN Q CREDIT CONTROL ADMINISTRATOR 12/04/23 Lidocaine Hcl (Lidocaine Viscous) 2 % Catie, 5 ML MT Q6HPRN PRN, #100 ML As needed for sore throat Prov:VAMSI DURÁN Q CREDIT CONTROL ADMINISTRATOR 12/04/23 Acetaminophen (Tylenol) 650 Mg Rc, 650 MG PO TID PRN, #30 SUPP.RECT Prov:DANIELLA PADILLA MD 09/21/23 Tamsulosin Hcl (Flomax) 0.4 Mg Cap, 1 CAP PO DAILY, #30 CAP 11 Refills Prov:DANIELLA PADILLA MD 09/21/23 Sumatriptan Succinate (Imitrex) 50 Mg Tab, 100 MG PO BID, #20 TAB Prov:HALEY SALDAÑA PAC 11/24/22 Metformin Hydrochloride (Metformin Hcl) 850 Mg Tab, 1 TAB PO BID for 30 Days, #60 TAB 5 Refills Prov:OLLIE DE LA GARZA MD 09/28/22 Reported Medications Bupropion Hcl (Wellbutrin Sr) 150 Mg Tab, 150 MG PO, TAB 11/23/24 Atorvastatin Calcium (ATORVASTATIN CALCIUM) 40 Mg Tab, 1 TAB PO DAILY 09/16/23 Losartan Potassium (Losartan Potassium) 50 Mg Tab, 1 TAB PO DAILY 09/16/23 Semaglutide (Rybelsus) 7 Mg Tab, 1 TAB PO DAILY 09/16/23 Information Source: Patient Mode of Arrival: Ambulatory Severity: Moderate Timing: Hours Duration: Since onset Prehospital treatment: None Past Medical History PAST MEDICAL HISTORY: DM, PE Surgical History: DIRECTOR RELIGIOUS EDUCATION History: Denies all DIRECTOR RELIGIOUS EDUCATION Hx Family History Family History: Reviewed,noncontributory to illness Social History Smoker: Non-Smoker Alcohol: Denies ETOH Use Drugs: Denies Drug Use Lives In: Home Constitutional: denies: chills, diaphoresis, fatigue, fever, malaise, sweats, weakness, others EENTM: reports: eye pain (left eye pain/pressure); denies: blurred vision, double vision, ear bleeding, ear discharge, ear drainage, ear pain, ear ringing, eye redness, hearing loss, mouth pain, mouth swelling, nasal discharge, nose bleeding, nose congestion, nose pain, photophobia, tearing, throat pain, throat swelling, voice changes, others Respiratory: denies: cough, hemoptysis, orthopnea, SOB at rest, shortness of breath, SOB with excertion, stridor, wheezing, others Cardiovascular: denies: chest pain, dizzy spells, diaphoresis, Dyspnea on exertion, edema, irregular heart beat, left arm pain, lightheadedness, palpitations, PND, syncope, others Gastrointestinal: denies: abdomen distended, abdominal pain, blood streaked bowels, constipated, diarrhea, dysphagia, difficulty swallowing, hematemesis, melena, nausea, poor appetite, poor fluid intake, rectal bleeding, rectal pain, vomiting, others Genitourinary: denies: abnormal vagina bleeding, burning, dyspareunia, dysuria, flank pain, frequency, hematuria, incontinence, pain, , vagina discharge, urgency, others Neurological: reports: headache; denies: dizziness, fainting, left sided numbness, left sided weakness, numbness, paresthesia, pre-existing deficit, right sided numbness, right sided weakness, seizure, speech problems, tingling, tremors, weakness, others Musculoskeletal: denies: back pain, gout, joint pain, joint swelling, muscle pain, muscle stiffness, neck pain, others Integumetry: denies: bruises, change in color, change in hair/nails, dryness, laceration, lesions, lumps, rash, wounds, others Allergic/Immunocompromised: denies: Difficulty Healing, Frequent Infections, Hives, Itching, others Hematologic/Lymphatic: denies: anemia, blood clots, easy bleeding, easy bruising, swollen glands, others Endocrine: denies: excessive hunger, excessive sweating, excessive thirst, excessive urination, flushing, intolerance to cold, intolerance to heat, unexplained weight gain, unexplained weight loss, others Psychiatric: denies: anxiety, bipolar disorder, depression, hopeless, panic disorder, schizophrenia, sleepless, suicidal, others All Other Systems: Reviewed and Negative Physical Exam General Appearance: No Apparent Distress, Normal HEENT: Normal ENT Inspection, Pharynx Normal Neck: Full Range of Motion, Non-Tender, Normal, Normal Inspection Respiratory: Chest Non-Tender, Lungs Clear, No Accessory Muscle Use, No Respiratory Distress, Normal Breath Sounds Cardiovascular: No Edema, No Murmur, No Gallop, Normal Peripheral Pulses, Regular Rate/Rhythm Breast Exam: Deferred Gastrointestinal: No Organomegaly, Non Tender, No Pulsatile Mass, Normal Bowel Sounds, Soft Genitalia: Deferred Pelvic: Deferred Rectal: Deferred Extremities: No calf tenderness, Normal capillary refill, Normal inspection, Normal range of motion, Non-tender, No pedal edema Musculoskeletal : Apperance: Normal Neurologic: Alert, insulation extruder operator II-XII nml as Tested, No Motor Deficits, Normal Affect, Normal Mood, No Sensory Deficits Cerebellar Function: Normal Reflexes: Normal Skin: Dry, Normal Color, Warm Lymphatic: No Adenopathy Was a procedure done? Was a procedure done?: No Differential Dx Considerations may include: Migraine headache, change in medical prescription, generalized headache X-Ray, Labs, Meds, VS Vital Signs Date Time Temp Pulse Resp B/P (MAP) Pulse Ox O2 Delivery O2 Flow Rate FiO2 06/13/25 17:14 97.5 104 18 126/78 95 97.5 X-Ray, Labs, Meds, VS Comment Imaging: X-rays and CT scans were reviewed and interpreted by this provider, imaging shows no fractures and no pathological disease. Pending radiology review. Laboratory: Labs reviewed and interpreted by this provider. No significant abnormalities noted. Patient has prior medical visits reviewed. Med reconciliation performed Vital signs reviewed Time of 1ST Reevaluation: 18:10 Reevaluation 1ST: Unchanged Patient Education/Counseling: Diagnosis, Treatment, Need For Follow Up (Follow up with the PCP in next 2-4 days. Return to the emergency department if symptoms worsen over the next 24-48 hours.) Family Education/Counseling: No Family Present SEPSIS Sepsis Screen Date sepsis recognized/suspect: Jun 13, 2025 Time Sepsis recognized/suspect: 1716 Recent Procedure: No On Antibiotic Therapy: No Respiratory Rate >20: No Heart Rate >90: Yes Temp<36 C (96.8 F) or >38.3 C: No SBP <90 or MAP <65 mmHG: No New Acute Mental Status Change: No Is the patient on CPAP, BIPAP,: No Physician Orders Head Without Contrast (06/13/25 17:46) Vital Signs Date Time Temp Pulse Resp B/P (MAP) Pulse Ox O2 Delivery O2 Flow Rate FiO2 06/13/25 17:14 97.5 104 18 126/78 95 97.5 Departure 1 Departure Time of Disposition: 18:49 Impression: Primary Impression: Migraine headache Qualified Codes: G43.901 - Migraine, unspecified, not intractable, with status migrainosus Disposition: 01 HOME / SELF CARE / HOMELESS Condition: Fair Discharged With: Self Critical Care Note Critical Care Time?: No Stability Stability form required: No Heart Score Heart Score: Heart Score Response (Comments) Value History N/A 0 EKG N/A 0 Age N/A 0 Risk Factors N/A 0 Troponin N/A 0 Total 0 I personally scribed for RENEE GRAHAM ([email or web address]) on 06/13/25 at 17:48. Electronically submitted by Martha Espitia ([email or web address]). RENEE GRAHAM Jun 13, 2025 17:48
--- NOTE | 2025-06-13 18:28 | DVH ---
COMPUTERIZED TOMOGRAPHY OF THE HEAD WITHOUT CONTRAST REASON FOR STUDY: Headache COMPARISON: HEAD WITHOUT CONTRAST on DOS: 11/24/22, HEAD WITHOUT CONTRAST on DOS: 09/27/22 TECHNIQUE: Helical tomographic scans were obtained through the brain. 2-D coronal and sagittal refor matted images are provided. Radiation optimization: All CT scans at this facility use at least one of these dose optimization techniques: Automated exposure control mA and/or kV adjustment per patient s ize (includes targeted exams where dose is matched to clinical indication) or iterative reconstructio n. RADIATION DOSE: CTDI: 62 mGy DLP: 1089 mGy-cm FINDINGS: No suspicious intracranial hyperdensity to suggest acute blood. There is no mass effect n or midline shift. There is no hydrocephalus. There is a partially empty sella. The suprasellar cister n is intact. The calvarium is intact. The visualized mastoid air cells and paranasal sinuses are isaura r. There is trace soft tissue density in bilateral external auditory canals, likely cerumen. IMPRESSION: No acute intracranial abnormality.
[2025-06-13] MEDS: diphenhdrAMINE HCL 50 MG/1 ML VL IM ONE (18:45)
[2025-06-13 21:59] VITALS: BP 139/89; TEMP 98.9
[2025-06-13 22:15] VITALS: PULSE 104; RESP 20; O2SAT 100
[2025-06-13] MEDS: KETOROLAC TROMETH 30 MG/ML 1ML VIAL IM ONE (22:16)
[2025-06-13] MEDS: PROCHLORPERAZINE EDISYLATE 5 MG/ML 2ML VIAL IM ONE (22:16)
== END 2025-06-13 22:15 | disposition home or self-care (01) ==
LOC: ER 17:12
DX: G43.909 Migraine, unspecified, not intractable, without status migrainosus (principal); E11.9 Type 2 diabetes mellitus without complications; Z79.84 Long term (current) use of oral hypoglycemic drugs; Z79.899 Other long term (current) drug therapy; Z98.890 Other specified postprocedural states
CPT/HCPCS: 70450; 96372; 99285; J0780; J1885